=== PATIENT | male | born 1985 | race Caucasian/White ===

== ENCOUNTER 2017-09-13 10:32 | Emergency (ER) | payer BC, MEDICAID ==
--- NOTE | 2017-09-13 11:03 | EDM.PDOC ---
ED HPI GENERAL MEDICAL PROBLEM - General Chief Complaint: Skin Complaint Stated Complaint: ANAL ABSCESS Time Seen by Provider: 09/13/17 10:34 Source of Information: Reports: Patient History Limitations: Reports: No Limitations - History of Present Illness INITIAL COMMENTS - FREE TEXT/NARRATIVE: HISTORY AND PHYSICAL: History of present illness: Patient is a 32-year-old male who presents to the emergency room with concern of a rectal abscess. Patient states that several years ago he had an abscess removed from his tailbone area I Dr. Hobson. Since that time he has had intermittent re-occurrences of this abscess return. He states "it will get tender and pop...and go away". Reports that today he started to have pain and felt that the abscess was returning. 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 He denies any fever, chills, chest pain or shortness of breath. He denies any abdominal pain, nausea , vomiting, diarrhea or constipation. Review of systems: As per history of present illness and below otherwise all systems reviewed and negative. Past medical history: As per history of present illness and as reviewed below otherwise noncontributory. Surgical history: As per history of present illness and as reviewed below otherwise noncontributory. Social history: No reported history of drug or alcohol abuse. Family history: As per history of present illness and as reviewed below otherwise noncontributory. Physical exam: General: Well-developed and well-nourished 32-year-old male. Alert and oriented. Nontoxic appearing and in no acute distress. HEENT: Atraumatic, normocephalic, pupils equal and reactive bilaterally, negative for conjunctival pallor or scleral icterus, mucous membranes moist, throat clear, neck supple, nontender, trachea midline. No drooling or trismus noted. No meningeal signs Lungs: Clear to auscultation, breath sounds equal bilaterally, chest nontender. Heart: S1S2, regular rate and rhythm without overt murmur Abdomen: Soft, nondistended, nontender. Negative for masses or hepatosplenomegaly. Negative for costovertebral tenderness. Pelvis: Stable nontender. Genitourinary: Deferred. Rectal: This was done with a riveter pneumatic at the bedside. A healed scar is noted to his coccyx area. States he has tenderness over this area. There is no erythema or fluctuance noted. Normal appearing external evaluation. Normal rectal tone. No Hemorrhoids noted. Skin: Intact, warm, dry. No lesions or rashes noted. Extremities: Atraumatic, negative for cords or calf pain. Neurovascular unremarkable. Neuro: Awake, alert, oriented. Cranial nerves II through XII unremarkable. Cerebellum unremarkable. Motor and sensory unremarkable throughout. Exam nonfocal. Notes: Not able to visiualize any signs of an abscess (no errythema, nonfluctuant, etc..) Due to his extensive history, I will place patient on Augmentin and Cataflam. Supportive care measures were reviewed, encouraged him to follow up with general surgeon. Voices understanding and is agreeable to plan of care. Diagnostics: [] Therapeutics: [] Impression: Rectal pain Plan: 1. Please take your antibiotic as prescribed. 2. Donut seat cushion for comfort while driving. 3. Follow-up with the general surgeon for further evaluation and management. Return to the ED as needed and as discussed. Definitive disposition and diagnosis as appropriate pending reevaluation and review of above. Onset: Today Duration: Day(s): Location: Reports: Pelvis buttock Pain Score (Numeric/FACES): 3 - Related Data Allergies Allergy/AdvReac Type Severity Reaction Status Date / Time No Known Allergies Allergy Verified 09/13/17 10:38 Home Meds: Home Meds . [No Known Home Meds] 10/10/14 [History] Past Medical History - Past Health History Medical/Surgical History: Denies Medical/Surgical History HEENT History: Reports: None Cardiovascular History: Reports: None Respiratory History: Reports: None Gastrointestinal History: Reports: None Genitourinary History: Reports: None Musculoskeletal History: Reports: None Neurological History: Reports: None Psychiatric History: Reports: None Endocrine/Metabolic History: Reports: None Hematologic History: Reports: None Immunologic History: Reports: None Oncologic (Cancer) History: Reports: None Dermatologic History: Reports: None - Infectious Disease History Infectious Disease History: Reports: Chicken Pox, Mumps - Past Surgical History Head Surgeries/Procedures: Reports: None HEENT Surgical History: Reports: Oral Surgery Cardiovascular Surgical History: Reports: None Respiratory Surgical History: Reports: None GI Surgical History: Reports: None Male Surgical History: Reports: None Musculoskeletal Surgical History: Reports: None Oncologic Surgical History: Reports: None Dermatological Surgical History: Reports: Other (See Below) Social & Family History - Family History Family Medical History: Noncontributory - Tobacco Use Smoking Status *Q: Current Every Day Smoker Years of Tobacco use: 12 Packs/Tins Daily: 1 Second Hand Smoke Exposure: Yes - Caffeine Use Caffeine Use: Reports: Coffee, Energy Drinks - Alcohol Use Days Per Week of Alcohol Use: 0 Number of Drinks Per Day: 3 Total Drinks Per Week: 0 - Recreational Drug Use Recreational Drug Use: No Drug Use in Last 12 Months: No ED ROS GENERAL - Review of Systems Review Of Systems: ROS reveals no pertinent complaints other than HPI. ED EXAM, SKIN/RASH Exam: See Below (See dictation) Course - Vital Signs Last Recorded V/S: Last Vital Signs Temp 97.1 F 09/13/17 10:39 Pulse 90 09/13/17 10:39 Resp 18 09/13/17 10:39 BP 143/95 H 09/13/17 10:39 Pulse Ox 97 09/13/17 10:39 Departure - Departure Time of Disposition: 11:03 Disposition: Home, Self-Care 01 Clinical Impression: Rectal pain - Discharge Information Referrals: PCP,None [Primary Care Provider] - Forms: ED Department Discharge Additional Instructions: The following information is given to patients seen in the emergency department who are being discharged to home. This information is to outline your options for follow-up care. We provide all patients seen in our emergency department with a follow-up referral. The need for follow-up, as well as the timing and circumstances, are variable depending upon the specifics of your emergency department visit. If you don't have a primary care physician on staff, we will provide you with a referral. We always advise you to contact your personal physician following an emergency department visit to inform them of the circumstance of the visit and for follow-up with them and/or the need for any referrals to a consulting specialist. The emergency department will also refer you to a specialist when appropriate. This referral assures that you have the opportunity for follow-up care with a specialist. All of these measure are taken in an effort to provide you with optimal care, which includes your follow-up. Under all circumstances we always encourage you to contact your private physician who remains a resource for coordinating your care. When calling for follow-up care, please make the office aware that this follow-up is from your recent emergency room visit. If for any reason you are refused follow-up, please contact the [facility] Emergency Department at and asked to speak to the emergency department charge nurse. [facility] [address], [place] [address] [facility] - General Surgery Professional Building [address] [place] [address], [address] [place] [address] 1. Please take your antibiotic as prescribed. 2. Donut seat cushion for comfort while driving. 3. Follow-up with the general surgeon for further evaluation and management. Return to the ED as needed and as discussed.
[2017-09-13 11:17] VITALS: BP 138/75
== END 2017-09-13 11:12 | disposition home or self-care (01) ==
LOC: MW.ED 10:32
DX: K62.89 Other specified diseases of anus and rectum (principal); F17.210 Nicotine dependence, cigarettes, uncomplicated
CPT/HCPCS: 99282

== ENCOUNTER 2017-10-09 18:53 | Emergency (ER) | payer OTHER, BC ==
--- NOTE | 2017-10-09 19:20 | EDM.PDOC ---
ED HPI GENERAL MEDICAL PROBLEM - General Chief Complaint: Lower Extremity Injury/Pain Stated Complaint: PT HURT RT FOOT AT WORK Time Seen by Provider: 10/09/17 19:07 Source of Information: Reports: Patient History Limitations: Reports: No Limitations - History of Present Illness INITIAL COMMENTS - FREE TEXT/NARRATIVE: HISTORY AND PHYSICAL: History of present illness: Patient is a 32-year-old male who presents to the emergency room today with complaints of right ankle pain. 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 There is some right lateral ankle swelling and bruising noted. Review of systems: As per history of present illness and below otherwise all systems reviewed and negative. Past medical history: As per history of present illness and as reviewed below otherwise noncontributory. Surgical history: As per history of present illness and as reviewed below otherwise noncontributory. Social history: No reported history of drug or alcohol abuse. Family history: As per history of present illness and as reviewed below otherwise noncontributory. Physical exam: General: Well-developed and well-nourished 32-year-old male. Alert and oriented. Nontoxic appearing and in no acute distress. HEENT: Atraumatic, normocephalic, pupils equal and reactive bilaterally, negative for conjunctival pallor or scleral icterus, mucous membranes moist, throat clear, neck supple, nontender, trachea midline. No drooling or trismus noted. No meningeal signs Lungs: Clear to auscultation, breath sounds equal bilaterally, chest nontender. Heart: S1S2, regular rate and rhythm without overt murmur Abdomen: Soft, nondistended, nontender. Negative for masses or hepatosplenomegaly. Negative for costovertebral tenderness. Pelvis: Stable nontender. Genitourinary: Deferred. Rectal: Deferred. Skin: Intact, warm, dry. No lesions or rashes noted. Extremities: Soft tissue swelling noted to the lateral malleolus on the right. Tenderness with palpation. Good flexion and extension of the foot. Strong pedal pulse. Capillary refill less than 3 seconds. Appears to have no acuities involvement. Moves all other extremities without difficulty or deficits. She is negative for cords or calf pain. Neurovascular unremarkable. Neuro: Awake, alert, oriented. Cranial nerves II through XII unremarkable. Cerebellum unremarkable. Motor and sensory unremarkable throughout. Exam nonfocal. Notes: X-ray shows soft tissue swelling over the distal fibula with small ossific density which can not exclude fracture fragment. Vertical to see seen through the lateral towel or prosthesis which is suspicious for a nondisplaced fracture. This information was shared with the patient. A cam walker boot and crutches were given along with education. Encouraged him to follow-up with the orthopedic provider in the next couple days. Supportive care measures were reviewed and discussed. I will give him [place] tablets of tramadol for home use. Medication education completed. He voices understanding and is agreeable to plan of care. Denies any further questions at this time. Diagnostics: X-ray Therapeutics: Cam Walker Boot, Crutches Impression: Right ankle injury, possible fracture Plan: 1. Rest, ice, elevate the affected extremity. 2. Use the splint and crutches as we discussed. 3. Tylenol and/or ibuprofen as needed for pain management. Tramadol as needed for moderate to severe pain. This medication may cause drowsiness a do not take it will driving her needing to be functioning outside of the house. 4. Follow-up with your primary caregiver and or the orthopedic provider in the next 1-2 days. Return to the ED as needed and as discussed. Definitive disposition and diagnosis as appropriate pending reevaluation and review of above. right ankle Pain Score (Numeric/FACES): 5 - Related Data Allergies Allergy/AdvReac Type Severity Reaction Status Date / Time No Known Allergies Allergy Verified 10/09/17 19:28 Home Meds: Home Meds . [No Known Home Meds] 10/10/14 [History] Past Medical History - Past Health History Medical/Surgical History: Denies Medical/Surgical History HEENT History: Reports: None Cardiovascular History: Reports: None Respiratory History: Reports: None Gastrointestinal History: Reports: None Genitourinary History: Reports: None Musculoskeletal History: Reports: None Neurological History: Reports: None Psychiatric History: Reports: None Endocrine/Metabolic History: Reports: None Hematologic History: Reports: None Immunologic History: Reports: None Oncologic (Cancer) History: Reports: None Dermatologic History: Reports: None - Infectious Disease History Infectious Disease History: Reports: Chicken Pox, Mumps - Past Surgical History Head Surgeries/Procedures: Reports: None HEENT Surgical History: Reports: Oral Surgery Cardiovascular Surgical History: Reports: None Respiratory Surgical History: Reports: None GI Surgical History: Reports: None Male Surgical History: Reports: None Musculoskeletal Surgical History: Reports: None Oncologic Surgical History: Reports: None Dermatological Surgical History: Reports: Other (See Below) Social & Family History - Family History Family Medical History: Noncontributory - Caffeine Use Caffeine Use: Reports: Coffee, Energy Drinks Review of Systems - Review of Systems Review Of Systems: ROS reveals no pertinent complaints other than HPI. ED EXAM, GENERAL - Physical Exam Exam: See Below (See dictation) Course - Vital Signs Last Recorded V/S: Last Vital Signs Temp 98.4 F 10/09/17 18:55 Pulse 74 10/09/17 18:55 Resp 18 10/09/17 18:55 BP 126/66 10/09/17 18:55 Pulse Ox 96 10/09/17 18:55 - Orders/Labs/Meds Orders: Active Orders 24 hr Category Date Time Status Ankle Min 3V Rt [CR] Stat Exams 10/09/17 19:21 Ordered DME for Discharge [COMM] Stat Oth 10/09/17 20:05 Ordered Departure - Departure Time of Disposition: 20:08 Disposition: Home, Self-Care 01 Clinical Impression: Right ankle injury Qualifiers: Encounter type: initial encounter Qualified Code(s): S99.911A - Unspecified injury of right ankle, initial encounter - Discharge Information Referrals: PCP,None [Primary Care Provider] - Forms: ED Department Discharge Additional Instructions: The following information is given to patients seen in the emergency department who are being discharged to home. This information is to outline your options for follow-up care. We provide all patients seen in our emergency department with a follow-up referral. The need for follow-up, as well as the timing and circumstances, are variable depending upon the specifics of your emergency department visit. If you don't have a primary care physician on staff, we will provide you with a referral. We always advise you to contact your personal physician following an emergency department visit to inform them of the circumstance of the visit and for follow-up with them and/or the need for any referrals to a consulting specialist. The emergency department will also refer you to a specialist when appropriate. This referral assures that you have the opportunity for follow-up care with a specialist. All of these measure are taken in an effort to provide you with optimal care, which includes your follow-up. Under all circumstances we always encourage you to contact your private physician who remains a resource for coordinating your care. When calling for follow-up care, please make the office aware that this follow-up is from your recent emergency room visit. If for any reason you are refused follow-up, please contact the [facility] Emergency Department at and asked to speak to the emergency department charge nurse. [facility] [address] [place] [id number] [facility] Specialty Care - Orthopedic Clinic Professional Building [address] [place] [address], [address] [place] [address] 1. Rest, ice, elevate the affected extremity. 2. Use the splint and crutches as we discussed. 3. Tylenol and/or ibuprofen as needed for pain management. Tramadol as needed for moderate to severe pain. This medication may cause drowsiness a do not take it will driving her needing to be functioning outside of the house. 4. Follow-up with your primary caregiver and or the orthopedic provider in the next 1-2 days. Return to the ED as needed and as discussed. - My Orders Last 24 Hours: My Active Orders 10/09/17 19:21 Ankle Min 3V Rt [CR] Stat 10/09/17 20:05 DME for Discharge [COMM] Stat - Assessment/Plan Last 24 Hours: My Active Orders 10/09/17 19:21 Ankle Min 3V Rt [CR] Stat 10/09/17 20:05 DME for Discharge [COMM] Stat
[2017-10-09 20:26] VITALS: BP 131/67
--- NOTE | 2017-10-10 14:31 | CR ---
EXAM DATE: 10/09/17 PATIENT'S AGE: 32 Patient: ELLIS PROCTOR Facility: [place], [place] Site . Site : 1985 Study: XRay Extremity Right ankle [id number]/14/2018 7:41:22 PM Ordering Physician: Doctor Sims Final Report: HISTORY: Pain. FINDINGS: Three views of the right ankle demonstrate soft tissue swelling over the distal fibula. There is a tiny calcific density seen along the inferior margin of the distal fibula. This appears well corticated. No donor site is seen. There is a vertical lucency through the lateral talar process on the AP image. The distal fibula, mortise and talar dome are intact. The base of the 5th metatarsal is intact. IMPRESSION: 1. Soft tissue swelling over the distal fibula. There is a small ossific density seen in the inferior margin of the distal fibula. This appears fairly smooth and well corticated. No donor site is seen. This is difficult due to completely exclude as a small avulsion fracture fragment. 2. Vertical lucency seen through the lateral talar process suspicious for nondisplaced fracture. Dictated by Ynes Medrano MD @ 10/09/2017 8:03:39 PM Dictated by: Ynes Medrano MD @ 10/09/2017 20:03:45 (Electronic Signature) Report Signed by Proxy. MARÍA
== END 2017-10-09 20:26 | disposition home or self-care (01) ==
LOC: MW.ED 18:53
DX: S99.911A Unspecified injury of right ankle, initial encounter (principal); W17.2XXA Fall into hole, initial encounter
CPT/HCPCS: 73610-26-RT; 73610-RT; 99283; 99284

== ENCOUNTER 2018-01-30 20:03 | Emergency (ER) | payer BC, OTHER ==
--- NOTE | 2018-01-30 20:27 | EDM.PDOC ---
ED HPI GENERAL MEDICAL PROBLEM - General Chief Complaint: Skin Complaint Stated Complaint: PT HAS INFECTION ON RT LEG Time Seen by Provider: 01/30/18 20:12 - History of Present Illness INITIAL COMMENTS - FREE TEXT/NARRATIVE: HISTORY AND PHYSICAL: History of present illness: Patient 33-year-old male presents with concern of subcutaneous nodule that was mid thigh with surrounding erythema warmth and discomfort he has no history of MRSA he states he had a similar episode in the past but this was a perirectal abscess. He's had no fever chills nausea vomiting or other complaints Review of systems: As per history of present illness and below otherwise all systems reviewed and negative. Past medical history: As per history of present illness and as reviewed below otherwise noncontributory. Surgical history: As per history of present illness and as reviewed below otherwise noncontributory. Social history: No reported history of drug or alcohol abuse. Family history: As per history of present illness and as reviewed below otherwise noncontributory. Physical exam: HEENT: Atraumatic, normocephalic, pupils reactive, negative for conjunctival pallor or scleral icterus, mucous membranes moist, throat clear, neck supple, nontender, trachea midline. Lungs: Clear to auscultation, breath sounds equal bilaterally, chest nontender. Heart: S1S2, regular, negative for clicks, rubs, or JVD. Abdomen: Soft, nondistended, nontender. Negative for masses or hepatosplenomegaly. Negative for costovertebral tenderness. Pelvis: Stable nontender. Genitourinary: Deferred. Rectal: Deferred. Extremities: Right thigh has a 1 cm subcutaneous nodule with slight erythema and warmth there's a little bit of tenderness to palpation there is no fluctuance is minimal induration. Neuro: Awake, alert, oriented. Cranial nerves II through XII unremarkable. Cerebellum unremarkable. Motor and sensory unremarkable throughout. Exam nonfocal. Diagnostics: None Therapeutics: None Impression: #1 subcutaneous nodule probable lipoma rule out early superficial cellulitis Definitive disposition and diagnosis as appropriate pending reevaluation and review of above. - Related Data Allergies Allergy/AdvReac Type Severity Reaction Status Date / Time No Known Allergies Allergy Verified 01/30/18 20:21 Home Meds: Home Meds . [No Known Home Meds] 10/10/14 [History] Past Medical History - Past Health History Medical/Surgical History: Denies Medical/Surgical History HEENT History: Reports: None Cardiovascular History: Reports: None Respiratory History: Reports: None Gastrointestinal History: Reports: None Genitourinary History: Reports: None Musculoskeletal History: Reports: None Neurological History: Reports: None Psychiatric History: Reports: None Endocrine/Metabolic History: Reports: None Hematologic History: Reports: None Immunologic History: Reports: None Oncologic (Cancer) History: Reports: None Dermatologic History: Reports: None - Infectious Disease History Infectious Disease History: Reports: Chicken Pox, Mumps - Past Surgical History Head Surgeries/Procedures: Reports: None HEENT Surgical History: Reports: Oral Surgery Cardiovascular Surgical History: Reports: None Respiratory Surgical History: Reports: None GI Surgical History: Reports: None Male Surgical History: Reports: None Musculoskeletal Surgical History: Reports: None Oncologic Surgical History: Reports: None Social & Family History - Family History Family Medical History: Noncontributory - Tobacco Use Smoking Status *Q: Current Every Day Smoker Years of Tobacco use: 12 Packs/Tins Daily: 1 - Caffeine Use Caffeine Use: Reports: Coffee, Energy Drinks - Recreational Drug Use Recreational Drug Use: No ED ROS GENERAL - Review of Systems Review Of Systems: ROS reveals no pertinent complaints other than HPI. ED EXAM, SKIN/RASH Exam: See Below (See dictation) Course - Vital Signs Last Recorded V/S: Last Vital Signs Temp 36.8 C 01/30/18 20:03 Pulse 88 01/30/18 20:03 Resp 18 01/30/18 20:03 BP 132/84 01/30/18 20:03 Pulse Ox 95 01/30/18 20:03 Departure - Departure Time of Disposition: 20:26 Disposition: Home, Self-Care 01 Condition: Good Clinical Impression: Cellulitis - Discharge Information *PRESCRIPTION DRUG MONITORING PROGRAM REVIEWED*: Not Applicable *COPY OF PRESCRIPTION DRUG MONITORING REPORT IN PATIENT VALERIE: Not Applicable Referrals: PCP,None [Primary Care Provider] - Additional Instructions: The following information is given to patients seen in the emergency department who are being discharged to home. This information is to outline your options for follow-up care. We provide all patients seen in our emergency department with a follow-up referral. The need for follow-up, as well as the timing and circumstances, are variable depending upon the specifics of your emergency department visit. If you don't have a primary care physician on staff, we will provide you with a referral. We always advise you to contact your personal physician following an emergency department visit to inform them of the circumstance of the visit and for follow-up with them and/or the need for any referrals to a consulting specialist. The emergency department will also refer you to a specialist when appropriate. This referral assures that you have the opportunity for followup care with a specialist. All of these measure are taken in an effort to provide you with optimal care, which includes your followup. Under all circumstances we always encourage you to contact your private physician who remains a resource for coordinating your care. When calling for followup care, please make the office aware that this follow-up is from your recent emergency room visit. If for any reason you are refused follow-up, please contact the [facility] emergency department at and asked to speak to the emergency department charge nurse. [facility] Specialty Care - General Surgery Professional Building [address] [place] [address], [address] [place] [address] Bactrim as prescribed follow-up Gen. surgery call to schedule routine appointment return as needed discussed Motrin/Tylenol as directed
[2018-01-30 20:49] VITALS: BP 132/79
== END 2018-01-30 20:35 | disposition home or self-care (01) ==
LOC: MW.ED 20:03
DX: L03.115 Cellulitis of right lower limb (principal); F17.210 Nicotine dependence, cigarettes, uncomplicated
CPT/HCPCS: 99283